=== PATIENT | female | born 1940 | race Two or more races ===

== ENCOUNTER 2025-11-07 18:11 | Emergency (ER) | payer OTHER, MEDICAID ==
[~2025-11-07] VITALS: Ht 142.2 cm; Wt 55.4 kg
--- NOTE | 2025-11-07 18:54 | ED.PDOC ---
General HPI Comments 85 y.o female presents to the ED for a chief complaint of suprapubic pain associated with urinary frequency, fever and chills x 3 days. Patient reports 3 weeks ago, had same pain which resolved on its own but presented once again but sharper and constant. Patient states urinating every 5-10 minutes which is new onset for her. She states when urinating, pain worsened. She denies any hematuria, nausea, vomiting and diarrhea; additionally, she mentions having back pain but is unsure if it is related to her new onset symptoms as she has had this pain in the past. No recent falls or injuries. Vitals: BP: HR: RR: SPO2: Temp: Past medical history: HLD, HTN, thyroid and GERD Past surgical history: Denies Social history: Denies Allergies: Sulfa and penicillins Avilas: urinary, suprapubic, HPI: Poor Historian. REVIEW OF SYSTEMS: CONSTITUTIONAL: Denies acute: fever, diaphoresis, chills, generalized weakness. HEAD: Denies acute: headache, photophobia Eyes: Denies acute: Double vision, vision loss, eye pain, eye discharge. EARS: Denies acute: tinnitus, hearing loss, ear discharge, ear pain, THROAT: Denies acute: swelling, difficulty swallowing , pain with swallowing, change in voice. NECK: Denies acute: neck pain, neck swelling, stiff neck. HEART: Denies acute : chest pain, palpitations, LUNGS: Denies acute: SOB, wheezing, cough, hemoptysis ABDOMEN: Denies acute: , Nausea, Vomiting, diarrhea, melena , hematemesis, hematochezia SKIN: Denies acute: rash, redness, lesions, itchiness. EXTREMITIES: Denies acute: calf pain, numbness, tingling, weakness, denies pain in extremity. Neuro: Denies acute: focal neurological deficit, motor or sensory focal neurological deficit, tremors, seizure like activity, confusion, dizziness, change in mental status, loss of bowel or bladder function, cauda equina like symptoms. : Denies acute: , hematuria, flank pain, PSYCH: Denies acute: hallucination, suicidal ideation, homicidal ideation. FEMALE: Denies acute: abnormal vaginal bleeding, foul odor, unusual discharge. PHYSICAL EXAM: General: -----no---acute distress, awake and alert. Head: normocephalic, atraumatic. No raccoon's eyes, no ho sign. Neck: supple, trachea is midline, no swelling. Throat: Normal phonation. Eyes:, no erythema, no purulent discharge, no proptosis, no icterus. Heart: regular rate, regular rhythm, no significant murmur appreciated. Lungs: no apparent respiratory distress, Able to speak in full sentences. No wheezing, no rhonchi, no crackles. No stridors Clear to auscultation bilaterally. Abdomen: suprapubic tender to palpation, non distended, soft, no guarding, no rebound, + bowel sounds. Neuro: Awake, Alert, oriented to name, self, situation, follows commands GCS=15. Speech is normal. Skin: no petechia, no purpura, no cyanosis, non-pale, not jaundice. Lower extremities: --no - Pitting edema no deformity, no focal swelling, no calf TTP. Makes eye contact. moves all four extremities. Face: no apparent facial droop. Ambulating in the ED independently. ED COURSE: DISCLAIMER: This medical document was created using an electronic medical record system with voice recognition software and computerized dictation system. Although this document has been carefully reviewed, there might still be some phonetic and typographical errors. Occasional wrong-word or "sound-alike" substitutions may have occurred due to the inherent limitations of voice recognition software. These areas are purely typographical due to imperfections of the software programs and do not reflect any compromise in the patient's medical care. Please read the chart carefully and recognize, using context, where these substitutions have occurred. Chief Complaint: Urinary Time Seen by MD: 18:44 Reviewed notes: Medications, Allergies Allergies: Coded Allergies: Penicillins (Verified Allergy, Unknown, 11/07/25) Sulfa Antibiotics (Verified Allergy, Unknown, 11/07/25) Information Source: Patient Mode of Arrival: Ambulatory Past Medical History PAST MEDICAL HISTORY: High Lipids, HTN, Thyroid Surgical History: Denies all surgeries SACK SEWER History: No Pertinent SACK SEWER History Family History Family History: Reviewed,noncontributory to illness Social History Smoker: Non-Smoker Alcohol: Denies ETOH Use Drugs: Denies Drug Use Lives In: Home Was a procedure done? Was a procedure done?: No Differential Diagnosis Kidney stone (Female): Strain Urinary Problem (Female): PID, Urolithiasis, UTI X-Ray, Labs, Meds, VS Vital Signs Date Time Temp Pulse Resp B/P (MAP) Pulse Ox O2 Delivery O2 Flow Rate FiO2 11/07/25 21:15 98.6 65 18 138/74 (95) 96 98.6 11/07/25 21:15 98.6 65 18 138/74 (95) 96 98.6 11/07/25 18:19 99.3 83 18 150/83 96 99.3 Lab Test 11/07/25 19:35 11/07/25 18:52 Range/Units Urine Color Colorless Yellow Urine Clarity Clear Clear Urine pH 6.0 5.0-9.0 Urine Specific Gregory 1.005 1.001-1.035 Urine Protein Negative Negative Urine Ketones Negative Negative Urine Blood 2+ H Negative /uL Urine Nitrite Negative Negative Urine Bilirubin Negative Negative Urine Urobilinogen Normal Negative mg/dL Urine Leukocyte Esterase 1+ Negative /uL Urine RBC 12 0 - 4 /hpf Urine Microscopic WBC 18 H 0-5 /HPF Urine Squamous Epithelial Cells None seen <5 /hpf Urine Bacteria Few H None Seen /hpf Urine Glucose Normal Normal mg/dL White Blood Count 7.8 4.4-10.8 10^3/uL Red Blood Count 4.80 4.0-5.20 10^6/uL Hemoglobin 15.5 12.2-16.2 g/dL Hematocrit 45.1 36.0-46.0 % Mean Corpuscular Volume 93.9 80.0-100.0 fL Mean Corpuscular Hemoglobin 32.2 H 28.0-32.0 pg Mean Corpuscular Hemoglobin Concent 34.3 32.0-36.0 g/dL Red Cell Distribution Width 13.4 11.8-14.3 % Platelet Count 81 L 140-450 10^3/uL Mean Platelet Volume 10.9 H 6.9-10.8 fL Neutrophils (%) (Auto) 58.8 37.0-80.0 % Lymphocytes (%) (Auto) 27.5 10.0-50.0 % Monocytes (%) (Auto) 12.9 H 0.0-12.0 % Eosinophils (%) (Auto) 0.4 0.0-7.0 % Basophils (%) (Auto) 0.4 0.0-2.0 % Neutrophils # (Auto) 4.6 1.6-8.6 10 ^3/uL Lymphocytes # (Auto) 2.2 0.4-5.4 10 ^3/uL Monocytes # (Auto) 1.0 0-1.3 10 ^3/uL Eosinophils # (Auto) 0 0-0.8 10 ^3/uL Basophils # (Auto) 0 0-0.2 10 ^3/uL Nucleated Red Blood Cells 0.1 % Platelet Estimate Decreased Large Platelets Few Red Blood Cell Morphology Normal Sodium Level 137 136-145 mmol/L Potassium Level 3.3 L 3.5-5.1 mmol/L Chloride Level 98 98-107 mmol/L Carbon Dioxide Level 26 20-31 mmol/L Anion Gap 13 5-15 Blood Urea Nitrogen 8 L 9-23 mg/dL Creatinine 0.61 0.550-1.02 mg/dL Glomerular Filtration Rate Calc 89 >90 mL/min BUN/Creatinine Ratio 13.1 10.0-20.0 Serum Glucose 95 74-106 mg/dL Lactic Acid Level 0.8 0.4-2.0 mmol/L Calcium Level 9.3 8.7-10.4 mg/dL Total Bilirubin 1.1 H 0.2-1.0 mg/dL Aspartate Amino Transferase (AST) 60 H 13-40 U/L Alanine Aminotransferase (ALT) 55 H 7-40 U/L Alkaline Phosphatase 132 H 46-116 U/L Total Protein 7.1 5.7-8.2 g/dL Albumin 4.3 3.2-4.8 g/dL Current Medications Medications (Trade) Dose Ordered Sig/Lionel Route Start Time Stop Time Status Last Admin Ceftriaxone Sodium 50 ml @ 100 mls/hr ONCE ONCE IV 11/07/25 20:00 11/07/25 20:29 DC 11/07/25 21:48 Time of 1ST Reevaluation: 18:50 Reevaluation 1ST: Unchanged Time of 2ND Reevaluation: 22:13 (The case was discussed with the admitting team (HPI, physical exam, labs and diagnostic tests that were available at the time of disposition, ED course, treatment plan) on the phone. They agreed to admit the patient to their service and assume care of this patient from this point forward. RUBBERIZING MECHANIC Elias. ) Patient Education/Counseling: Diagnosis, Treatment Family Education/Counseling: No Family Present Departure 1 Departure Time of Disposition: 19:51 Impression: Primary Impression: UTI (urinary tract infection) Discharged With: Self Critical Care Note Critical Care Time?: No I personally scribed for TIP SAPP DO ([email or web address]) on 11/07/25 at 18:54. Electronically submitted by Cynthia Sánchez ([facility]). TIP SAPP DO Nov 07, 2025 18:54
[2025-11-07 19:01] LABS: Hematocrit 45.1 % (36.0-46.0); Hemoglobin 15.5 g/dL (12.2-16.2); Mean Corpuscular Hemoglobin 32.2 pg (28.0-32.0); Mean Corpuscular Volume 93.9 fL (80.0-100.0); Nucleated Red Blood Cells % 0.1 %
[2025-11-07 19:17] LABS: Anion Gap 13 (5-15); BUN/Creatinine Ratio 13.1 (10.0-20.0); Calcium 9.3 mg/dL (8.7-10.4); Carbon Dioxide 26 mmol/L (20-31); Chloride 98 mmol/L (98-107); Glucose 95 mg/dL (74-106); Sodium 137 mmol/L (136-145); Total Protein 7.1 g/dL (5.7-8.2)
[2025-11-07 19:18] LABS: Albumin 4.3 g/dL (3.2-4.8); Bilirubin, Total 1.1 mg/dL (0.2-1.0)
[2025-11-07 19:27] LABS: Alanine Aminotransferase 55 U/L (7-40); Alkaline Phosphatase 132 U/L (46-116); Blood Urea Nitrogen 8 mg/dL (9-23); Potassium 3.3 mmol/L (3.5-5.1)
[2025-11-07 19:45] LABS: Urine Protein, UAD Negative (Negative)
--- NOTE | 2025-11-07 20:01 | DVH ---
EXAM: CT CT AB PEL WO CON-NO ORAL OR IV INDICATION: urinary symptoms TECHNIQUE: Volumetric multidetector CT images of the abdomen and pelvis were obtained without contrast. All CT scans at this facility use dose modulation, iterative reconstruction, and/or weight based dosing when appropriate to reduce radiation dose to as low as reasonably achievable. COMPARISON: None FINDINGS: [LOWER CHEST]: Possible peribronchial thickening with trace marginal ground- glass correlate for pneumonitis/bronchitis in the left lower lobe. The cardiac size is normal without pericardial effusion. Coronary artery calcifications. [LIVER]: Slightly macrolobular contour of the liver which may be seen in the setting of chronic liver disease. [GALLBLADDER AND BILIARY TREE]: Gallbladder is surgically absent. [SPLEEN]: Unremarkable. [PANCREAS]: Unremarkable. [ADRENAL GLANDS]: Unremarkable [KIDNEYS]: No hydronephrosis. No nephroureterolithiasis. No suspicious focal lesion. [BLADDER]: The appearance of cystitis of the bladder with surrounding wall thickening and inflammatory stranding primarily along the anterior margin. [REPRODUCTIVE ORGANS]: Unremarkable. [BOWEL/MESENTERY]: Stomach is decompressed limiting evaluation. Normal appendix. Moderate sigmoid diverticulosis and mild descending colonic diverticulosis. No CT evidence of bowel obstruction. [ASCITES]: Absent [LYMPHADENOPATHY]: No pathologically enlarged lymph nodes by CT size criteria [VASCULATURE]: No aneurysmal dilatation. [ABDOMINAL WALL]: Unremarkable. [MUSCULOSKELETAL]: Superior endplate compression deformity of L1 with 20-30 percent superior endplate height loss without significant retropulsion. [id number] facet arthropathy at L4-5 and L5-S1. Multifocal degenerative change of the visualized spine. IMPRESSION: 1. Appearance of cystitis of the bladder with surrounding wall thickening and inflammatory stranding primarily along the anterior margin. 2. No hydronephrosis or nephroureterolithiasis. 3. Macrolobular contour of the liver which may be seen in the setting of chronic liver disease. 4. Possible peribronchial thickening with trace marginal ground-glass correlate for pneumonitis/bronchitis in the left lower lobe.
[2025-11-07 20:28] LABS: RBC Morphology Normal
[2025-11-07] MEDS: SODIUM CHLORIDE 0.9% 1,000 ML IV ONE (22:28)
--- NOTE | 2025-11-07 22:56 | DVHINCON2 ---
Date of service: Nov 07, [address] Guillen Reason for Consultation Medical management History of Present Illness 85-year-old female presents with complaints of urinary discomfort, frequency, malaise x3 days. Patient experienced similar symptoms 3 weeks ago however resolved on its own. Patient has not been on oral antibiotic treatment for urinary infections. While in the emergency department patient has remained hemodynamically stable and in the emergency department lobby. Was treated with 1 L normal saline and IV Rocephin. Patient is able to ambulate independently with steady gait. Does not live home alone at this time the patient denies fevers, dizziness, shortness of breath, chest pain, palpitations, confusion, blood in urine, blood in stool, falls. Allergies: Coded Allergies: Penicillins (Verified Allergy, Unknown, 11/07/25) Sulfa Antibiotics (Verified Allergy, Unknown, 11/07/25) Home Meds Active Scripts Cefdinir (Cefdinir) 300 Mg Cap, 1 CAP PO BID for 7 Days, #14 CAP Prov:BHARATH PINZON VARIETY SAW OPERATOR 11/07/25 Phenazopyridine HCl (Phenazopyridine Hydrochlo) 100 Mg Tab, 100 MG PO TIDP PRN for 2 Days, #6 TAB Prov:BHARATH PINZON VARIETY SAW OPERATOR 11/07/25 Review of Systems Ten systems reviewed and negative except as per HPI Vital Signs Vital Signs Date Time Temp Pulse Resp B/P (MAP) Pulse Ox O2 Delivery O2 Flow Rate FiO2 11/07/25 21:15 98.6 65 18 138/74 (95) 96 98.6 Physical Exam GENERAL: Patient appearing stated age, in no acute distress. HEENT: Pupils equal and reactive to light and accommodation. Extraocular muscles intact. Mucous membranes moist. Conjunctivae pink. Anicteric sclerae. LUNGS: Bilateral air entry. No wheezes, rhonchi or rales. HEART: Regular rate and rhythm. Normal S1 and S2. ABDOMEN: BS normoactive, soft, nontender, and nondistended. No CVA tenderness. EXTREMITIES: No clubbing, cyanosis, edema. No calf tenderness. Pedal pulses 2+. NEUROLOGICAL: The patient is alert and oriented times 3. CN II-XII intact. No focal deficits on gross sensory or motor examination. Labs/Diagnostic Data Labs Test 11/07/25 19:35 11/07/25 18:52 Range/Units Urine Color Colorless Yellow Urine Clarity Clear Clear Urine pH 6.0 5.0-9.0 Urine Specific Victor 1.005 1.001-1.035 Urine Protein Negative Negative Urine Ketones Negative Negative Urine Blood 2+ H Negative /uL Urine Nitrite Negative Negative Urine Bilirubin Negative Negative Urine Urobilinogen Normal Negative mg/dL Urine Leukocyte Esterase 1+ Negative /uL Urine RBC 12 0 - 4 /hpf Urine Microscopic WBC 18 H 0-5 /HPF Urine Squamous Epithelial Cells None seen <5 /hpf Urine Bacteria Few H None Seen /hpf Urine Glucose Normal Normal mg/dL White Blood Count 7.8 4.4-10.8 10^3/uL Red Blood Count 4.80 4.0-5.20 10^6/uL Hemoglobin 15.5 12.2-16.2 g/dL Hematocrit 45.1 36.0-46.0 % Mean Corpuscular Volume 93.9 80.0-100.0 fL Mean Corpuscular Hemoglobin 32.2 H 28.0-32.0 pg Mean Corpuscular Hemoglobin Concent 34.3 32.0-36.0 g/dL Red Cell Distribution Width 13.4 11.8-14.3 % Platelet Count 81 L 140-450 10^3/uL Mean Platelet Volume 10.9 H 6.9-10.8 fL Neutrophils (%) (Auto) 58.8 37.0-80.0 % Lymphocytes (%) (Auto) 27.5 10.0-50.0 % Monocytes (%) (Auto) 12.9 H 0.0-12.0 % Eosinophils (%) (Auto) 0.4 0.0-7.0 % Basophils (%) (Auto) 0.4 0.0-2.0 % Neutrophils # (Auto) 4.6 1.6-8.6 10 ^3/uL Lymphocytes # (Auto) 2.2 0.4-5.4 10 ^3/uL Monocytes # (Auto) 1.0 0-1.3 10 ^3/uL Eosinophils # (Auto) 0 0-0.8 10 ^3/uL Basophils # (Auto) 0 0-0.2 10 ^3/uL Nucleated Red Blood Cells 0.1 % Platelet Estimate Decreased Large Platelets Few Red Blood Cell Morphology Normal Sodium Level 137 136-145 mmol/L Potassium Level 3.3 L 3.5-5.1 mmol/L Chloride Level 98 98-107 mmol/L Carbon Dioxide Level 26 20-31 mmol/L Anion Gap 13 5-15 Blood Urea Nitrogen 8 L 9-23 mg/dL Creatinine 0.61 0.550-1.02 mg/dL Glomerular Filtration Rate Calc 89 >90 mL/min BUN/Creatinine Ratio 13.1 10.0-20.0 Serum Glucose 95 74-106 mg/dL Lactic Acid Level 0.8 0.4-2.0 mmol/L Calcium Level 9.3 8.7-10.4 mg/dL Total Bilirubin 1.1 H 0.2-1.0 mg/dL Aspartate Amino Transferase (AST) 60 H 13-40 U/L Alanine Aminotransferase (ALT) 55 H 7-40 U/L Alkaline Phosphatase 132 H 46-116 U/L Total Protein 7.1 5.7-8.2 g/dL Albumin 4.3 3.2-4.8 g/dL Assessment Acute urinary tract infection The patient was seen and evaluated in the emergency department treatment area. The patient's chart was reviewed in this entirety, including lab work, imaging, vital signs, and current treatment. During the emergency department of e valuation, CBC is essentially unremarkable. CMP did demonstrate some chronic transaminitis consistent with the CT findings for micro lobular contour of the liver, which may be seen in setting of chronic liver disease.. Na 137, K3.3, BUN 8, creatinine 0.61, GFR 89. UA is positive for leukocytes esterase. The CT of the abdomen and pelvis was interpreted by the radiologist and reviewed per myself. Impressions reading appearance of cystitis of the bladder with surrounding wall, thickening and inflammatory stranding primarily along the interior margin. No hydronephrosis or [place] urethral lithiasis. Macro lobular contour of the liver, which may be seen in the setting of chronic liver disease. Additional findings include possible peribronchial, thickening with trace marginal, ground glass cord for pneumonitis, bronchitis in the left lower lobe. While in the emergency department, the patient was treated with IV Rocephin, and 1 L of normal saline. The patient has remained hemodynamically stable while in the emergency department lobby. Vital signs as follow temperature 98.2, BP 137/78, HR 78, oxygen saturation 98% on room air with 16 BPM. At this time, the patient is alert and oriented times four. Able to ambulate independently with steady gait, and live with her son. . Plan/Recommendation The patient is to be discharged from the emergency department with close outpatient follow up. O bilingual patient support caseworker has been consulted to establish home safety evaluation. Patient has a follow up visit with PCP on November 10, 2025. We will also follow up at [facility] on the following Sunday. For reevaluation of CBC, BMP. And progression of urinary infection. Prescription for oral antibiotics was sent to the patient's preferred pharmacy. Also provided as needed Pyridium for urinary discomfort. The patient was also instructed to use Tylenol for fever or pain. The patient and her son were provided with strict ER precautions including, but not limited to fevers, chills, dizziness, shortness of breath, chest pain, palpitations, nausea, vomiting. If any of these occur, feel free to return to the nearest emergency department for further evaluation and treatment. Plan discussed with: Patient, BHARATH Stock MARICARMEN Nov 07, 2025 22:56
[2025-11-07] MEDS ORDERED: PHEN-1044 PO (23:04)
[2025-11-07] MEDS ORDERED: CEFD300C2 PO (23:05)
[2025-11-07 23:52] VITALS: BP 137/78; PULSE 78; RESP 16; TEMP 98.2; O2SAT 98
== END 2025-11-07 23:53 | disposition home or self-care (01) ==
LOC: ER 18:11
DX: N39.0 Urinary tract infection, site not specified (principal); E78.5 Hyperlipidemia, unspecified; I10 Essential (primary) hypertension; K21.9 Gastro-esophageal reflux disease without esophagitis; Z88.0 Allergy status to penicillin; Z88.2 Allergy status to sulfonamides
CPT/HCPCS: 36415; 74176; 80053; 81001; 83605; 85025; 96361; 96365; 99285; J0696; J7030